=== PATIENT | male | born 1955 | race Caucasian/White ===

== ENCOUNTER 2016-10-15 10:21 | Emergency (ER) | payer OTHER ==
[~2016-10-15] VITALS: Ht 157.5 cm; Wt 59.1 kg
[~2016-10-15 10:21] MED LIST: NOCURR
[2016-10-15 10:25] VITALS: BP 158/86
[2016-10-15] MEDS ORDERED: LOVA40TA2 PO (10:31)
== END 2016-10-15 12:30 | disposition home or self-care (01) ==
LOC: EMS 10:22
DX: J06.9 Acute upper respiratory infection, unspecified (principal); J40 Bronchitis, not specified as acute or chronic; E78.00 Pure hypercholesterolemia, unspecified
CPT/HCPCS: 71020; 99284